=== PATIENT | male | born 2000 | race Caucasian/White ===

== ENCOUNTER 2025-03-24 17:06 | Emergency (ER) | payer MEDICAID ==
[~2025-03-24] VITALS: Ht 175.3 cm; Wt 138.3 kg
[~2025-03-24 17:06] MED LIST: ACET12.55 PO; DEXA4TAB PO; GEN0.3OS EACHEYE; IBUP-1984 PO; IBUP-2766 PO; NEOM28OI31 TOP; ONDA4TAB59 PO
[2025-03-24 17:12] VITALS: BP 145/102; PULSE 83; TEMP 98.6; O2SAT 96
--- NOTE | 2025-03-24 19:36 | Physician Documentation ---
HPI ~ General Chief Complaint: Tooth Problem Stated Complaint: MOUTH PAIN Time Seen by MD: 18:21 Primary Medical Doctor: Dina Buck History of Present Illness HPI Comment This is a 24-year-old male who presents with one day of left lower rear dental pain, patient reports no fever, difficulty swallowing, difficulty breathing, or facial swelling. Patient reports symptoms or concerns. Medication Reconciliation Allergies: Coded Allergies: No Known Allergies (Unverified , 03/24/25) Scheduled Acetaminophen with Codeine (Acetaminophn-Cod 300-30 mg Lupe), 5 ML PO Q6H Amox Tr/Potassium Clavulanate (Augmentin 875-125 Tablet), 1 TAB PO Q12H Dexamethasone (Dexamethasone), 12 MG PO DAILY Gentamicin Sulfate (Gentak), 2 DROP EACHEYE QID Ibuprofen (Ibuprofen), 1 TAB PO Q8H Ibuprofen 100MG/5ML Susp* (Motrin 100 MG/5ML Susp.*), 20 ML PO Q6H Ibuprofen* (Motrin*), 400 MG PO Q6H Neomycn/Baci Zn/Pmyx Bs/Pramox (Antibiotic + Pain Relief Oint), 1 GM TOP TID Ondansetron Hcl (Ondansetron Hcl), 4 MG PO Q8H PRN N/V Past Medical History Past Medical History: Sleep Apnea Past Surgical History: orthopedic surgeries Alcohol Use: None Drug Use: none Lives with: Mother, Family Lives In: Home Occupation: student, child Review of Systems ROS As stated above in the HPI, otherwise all systems are reviewed and negative. Physical Exam Vital Signs: Temperature: 98.6, Source: Temporal, Heart Rate: 83, Respiratory Rate: 16, BP: 145/102, Pulse Oximetry: 96, Weight: 138.300 Oxygen Flow Rate: 0 Physical Exam VITALS: Reviewed and as above. GENERAL: Alert, nontoxic appearing, no apparent distress. HEENT: Left lower rear 1st and 2nd molars small amount of purulent appearing material at base of tooth, minimal gum erythema at the base of these teeth, no fluctuance, no. No facial swelling, no elevation of the tongue, no submandibular swelling, no drooling. Uvula midline RESPIRATORY: No increased work of breathing, no respiratory distress, speaking in full clear sentences Progress Results/Orders Results/Orders Completed Orders - GIANLUCA NAJERA [employer] Ketorolac Trometh 15mg/Ml Vial (Toradol (03/24/25 19:40) Amox Tr/Potassium Clavulanate (Augmentin (03/24/25 19:40) Vital Signs 03/24/25 03/24/25 17:12 19:43 Temp 98.6 Pulse 83 Resp 16 16 B/P (MAP) 145/102 Pulse Ox 96 O2 Flow Rate 0 Medical Decision Making Additional information obtaine: N/A Findings This well appearing 24-year-old male presented with dental pain to the left lower 1st and 2nd molars. Based on history and physical exam I have low clinical suspicion for peritonsillar abscess, uvulitis, deep tissue space infection of the head/neck, or impending airway compromise. There was no submandibular swelling or elevation of the tongue, the uvula was midline, patient is able to swallow fluids and secretion without difficulty, there is no increased work of breathing or noisy breathing. Patient is otherwise well-appearing with remainder of physical exam benign. Patient is appropriate for outpatient follow up and will require follow up as soon as possible with a dentist, patient's provided home care instructions and return to care precautions and instructed to follow up as soon as possible with a dentist which he verbalized understanding of. Based on presentation I am concerned for odontogenic infection and antibiotic treatment with Augmentin is indicated. Differential Dx:Considerations: Include: Alveolar fracture, Alveolar osteitis, ANUG, Facial Cellulitis, Periapical abscess, Peridontal abscess, Pulpitis, Tooth avulsion, Tooth eruption, Tooth Fracture, Trigeminal neuralgia, Tooth subluxation, Other (Sam's angina) Departure Time of Disposition: 19:39 Disposition: 01 HOME / SELF CARE / HOMELESS Impression: Primary Impression: Toothache Condition: Improved Discharge Instructions: Dental Pain Additional Instructions: Please follow up with a dentist as soon as possible. Please take antibiotics as prescribed. You may use the prescribed ibuprofen as needed for pain and may add Tylenol as needed for breakthrough pain as directed by [id number] packaging. Please follow up with your primary care provider in the next few days. Please return to the emergency department for any new or worsening concerning symptoms. Referrals: NO PRIMARY CARE PROVIDER (PCP) Prescriptions Ibuprofen (Ibuprofen) 800 Mg Tablet 1 TAB PO Q8H for pain for 10 Days, #30 TAB 0 Refills Prov: GIANLUCA NAJERA [employer] 03/24/25 Amox Tr/Potassium Clavulanate (Augmentin 875-125 Tablet) 1 Each Tablet 1 TAB PO Q12H for 7 Days, #14 TAB Prov: GIANLUCA NAJERA 03/24/25 Education Educated: Patient Educated regarding: diagnosis, treatment, prognosis, need for follow up Signature Scribe Signature: No scribe Attestation: The note accurately reflects work and decisions made by me.IRMA Grissom 03/26/25 01:46 GIANLUCA NAJERA Mar 24, 2025 19:36
[2025-03-24] MEDS ORDERED: IBUP-1986 PO (19:42)
[2025-03-24] MEDS ORDERED: AMOX-117 PO (19:42)
[2025-03-24 19:43] VITALS: RESP 16
[2025-03-24] MEDS: ketorolac trometh 15mg/ml vial 15 MG/ML ML IM ONE (19:43)
[2025-03-24] MEDS: amox tr/potassium clavulanate 875/125mg TAB PO ONE (19:44)
== END 2025-03-24 19:51 | disposition home or self-care (01) ==
LOC: ER 17:06
DX: K08.89 Other specified disorders of teeth and supporting structures (principal); G47.30 Sleep apnea, unspecified; Z79.899 Other long term (current) drug therapy; Z98.890 Other specified postprocedural states
CPT/HCPCS: 96372; 99283; J1885